=== PATIENT | female | born 1990 | race Caucasian/White ===

== ENCOUNTER 2017-04-16 12:17 | Emergency (ER) | payer BC ==
[~2017-04-16] VITALS: Ht 165.1 cm; Wt 55.0 kg
[2017-04-16 12:18] VITALS: BP 124/67; PULSE 97; RESP 20; TEMP 98.4; O2SAT 100
--- NOTE | 2017-04-16 12:27 | PD ---
Physical Exam Date Seen by Provider: Apr 16, 2017 Time Seen by Provider: 12:26 Narrative 26 yo female here for evaluation of left pelvic pain. She is about 5 weeks . No discharge. OB recomended she comes here to make sure she doesnt have ectopic . No other complains. Last period early February. Vitals are stable in triage. Awaiting bed placement. Data Data Last Documented VS Vital Signs Date Time Temp Pulse Resp B/P (MAP) Pulse Ox O2 Delivery O2 Flow Rate FiO2 04/16/17 12:18 98.4 97 20 124/67 (86) 100 Room Air [facility] Medical Record Reviewed: Yes Supervised Visit with ASCENCION: James Tucker Apr 16, 2017 12:27
[2017-04-16 13:08] LABS: BACTERIA, URINE OCC /hpf; BLOOD, URINE NEG (NEG); COMMENT (UR) CULT NOT INDICATED; CULTURE IF INDICATED CULT NOT INDICATED; GLUCOSE,URINE NEG (NEG); KETONE, URINE NEG (NEG); NITRITE,URINE NEG (NEG); PH, URINE 5.5 (5.0-8.5); SQUAMOUS EPITHELIAL CELL URINE 4 /hpf (0-5); URINE COLOR YELLOW (YELLW/STRAW)
[2017-04-16 13:42] LABS: BETA HCG QUANT 5180 MIU/ML (0-5)
[2017-04-16] MEDS ORDERED: PREN29TA PO (13:56)
--- NOTE | 2017-04-16 15:04 | RADRPT ---
EXAM DATE/TIME: 04/16/2017 13:47 [place] COMPARISON: No previous studies available for comparison. INDICATIONS : Pelvic pain. LAB(S): [facility] MEDICAL HISTORY : . SURGICAL HISTORY : None. ENCOUNTER: Initial ACUITY: 3 days PAIN SCORE: 3/10 LOCATION: Bilateral pelvis MEASUREMENTS: UTERUS: 8.0 x 5.1 x 6.4 cm ENDOMETRIAL STRIPE: >20 mm RIGHT OVARY: 4.2 x 2.4 x 3.0 cm LEFT OVARY: 2.2 x 1.0 x 1.5 cm FREE FLUID: Yes posterior cul-de-sac, right adnexa. CROWN RUMP LENGTH: Not visualized. = WKS DAYS FHR: Not visualized. BPM FINDINGS: UTERUS: The myometrium has homogeneous echotexture without mass. There are 2 small cystic areas the endometr ial canal. The larger area in the lower uterine segment measures 4 x 2 x 7 mm and may represent the g estational sac. Smaller, 2 x 2 x 3 mm cystic area in the body may represent a small amount of free en dometrial fluid RIGHT OVARY: There is a 2.4 x 1.6 x 1.9 cm somewhat complex but predominantly cystic lesion LEFT OVARY: Ovary contains no mass or significant cystic lesion. MISCELLANEOUS: Small amount of free fluid. CONCLUSION: 1. At least 2 cystic areas in the endometrial canal. The dominant cystic area measuring [address] is in the lower uterine segment, is oblong and probably represents an in progress. Small er, 2 mm cystic collection in the uterine body may represent free endometrial fluid. 2. Probable involuting corpus luteum the right ovary. Small amount of free fluid Demetris Francis MD on April 16, 2017 at 14:58 Board Certified Radiologist. This report was verified electronically.
--- NOTE | 2017-04-16 15:24 | PD ---
HPI Chief Complaint: CHAVEZ Related Problem Time Seen by Provider: 13:48 Travel History International Travel<30 days: No Contact w/Intl Traveler<30days: No Traveled to known affect area: No History of Present Illness HPI This is a 26-year-old female who presents to the emergency department with left lower quadrant abdominal discomfort, constant, mild, cramping that started today. She denies any vaginal bleeding. She is about 5-1/2 weeks . She had a miscarriage back in June and has 2 living children. She denies any fevers or chills. PFSH Past Medical History Medical History: Denies Significant Hx Diminished Hearing: No ?: LMP: 03/14/17 : 4 Para: 3 Miscarriage: 1 Social History Alcohol Use: No Tobacco Use: No Substance Use: No Allergies-Medications (Allergen,Severity, Reaction): Coded Allergies: No Known Allergies (Unverified , 04/16/17) Reported Meds & Prescriptions Reported Meds & Active Scripts Active Reported Plus Iron 29-1 mg ( Vit-Iron Carbonyl) 1 Tab Tab 1 Tab PO DAILY Review of Systems Except as stated in HPI: all other systems reviewed are Neg Physical Exam Narrative GENERAL:Well appearing, no acute distress SKIN: Focused skin assessment warm and dry. HEAD: Atraumatic. Normocephalic. EYES: Pupils equal and round. No injection or drainage. ENT: Moist mucous membranes NECK: Trachea midline. CARDIOVASCULAR: Regular rate and rhythm. No murmur appreciated. RESPIRATORY: Clear to auscultation. Breath sounds equal bilaterally. GASTROINTESTINAL: Abdomen soft, non-tender, nondistended. RAILROAD DESIGN CONSULTANT: No cervical motion tenderness or adnexal tenderness, no blood or discharge , closed cervix MUSCULOSKELETAL: No obvious deformities. NEUROLOGICAL: Awake and alert. No obvious cranial nerve deficits. Moving all extremities. PSYCHIATRIC: Appropriate mood and affect; insight and judgment normal. Data Data Last Documented VS Vital Signs Date Time Temp Pulse Resp B/P (MAP) Pulse Ox O2 Delivery O2 Flow Rate FiO2 04/16/17 12:18 98.4 97 20 124/67 (86) 100 Room Air Orders Orders Beta Hcg (Quant/Titer) (04/16/17 12:25) Us Pelvis (Ques Pr/Ect)W Trans (04/16/17 ) Urinalysis - C+S If Indicated (04/16/17 12:25) Ed Urine Pregnancytest Poc (04/16/17 12:25) Labs Laboratory Tests Test 04/16/17 12:35 04/16/17 12:37 Urine Color YELLOW Urine Turbidity HAZY Urine pH 5.5 Urine Specific [place] 1.029 Urine Protein TRACE mg/dL Urine Glucose (UA) NEG mg/dL Urine Ketones NEG mg/dL Urine Occult Blood NEG Urine Nitrite NEG Urine Bilirubin NEG Urine Urobilinogen LESS THAN 2.0 MG/DL Urine Leukocyte Esterase SMALL Urine RBC 2 /hpf Urine WBC 5 /hpf Urine Squamous Epithelial Cells 4 /hpf Urine Bacteria OCC /hpf Microscopic Urinalysis Comment CULT NOT INDICATED Human Chorionic Gonadotropin, Quant 5180 MIU/ML MDM Medical Decision Making Medical Screen Exam Complete: Yes Emergency Medical Condition: Yes Interpretation(s) afebrile, mild tachycardia, normotensive hcg 5180 urinalysis: no infection Last 24 hours Impressions Pelvis Ultrasound 04/16/17 0000 Signed Impressions: Service Date/Time: Friday, April 16, 2017 13:47 - CONCLUSION: 1. At least 2 cystic areas in the endometrial canal. The dominant cystic area measuring 7 mm in diameter is in the lower uterine segment, is oblong and probably represents an in progress. Smaller, 2 mm cystic collection in the uterine body may represent free endometrial fluid. 2. Probable involuting corpus luteum the right ovary. Small amount of free fluid Demetris Francis MD Differential Diagnosis Ectopic , threatened miscarriage, intrauterine Narrative Course This is a 26-year-old female who presents to the emergency department with lower pelvic pain. HCG is 5180 and her pelvic ultrasound demonstrates a 2 cysts in the endometrial canal concerning for a possible in progress. The patient is having no bleeding. Her pelvic exam is benign with no pain elicited and no evident bleeding. I spoke to Dr. Miller who is the patient's HAMMER FITTER. He requested the patient be seen in the office immediately following discharge from the emergency Department. I discussed this with the patient and she expressed understanding. Diagnosis Primary Impression: Early stage of Referrals: Thien Kebede MD Patient Instructions: General Instructions Additional Instructions: If you develop severe abdominal pain, vaginal bleeding, lightheadedness or dizziness return to the emergency room. Follow-up with immediately upon discharge from the emergency department. He is expecting you in clinic. Med/Other Pt SpecificInfo: No Change to Meds Disposition: 01 DISCHARGE HOME Condition: Stable Heidi Hdez MD Apr 16, 2017 15:24
== END 2017-04-16 16:22 | disposition home or self-care (01) ==
LOC: NEPD 12:17
DX: O26.891 Other specified pregnancy related conditions, first trimester (principal); Z3A.01 Less than 8 weeks gestation of pregnancy
CPT/HCPCS: 76700; 76817; 81001; 84702; 84703; 99285

== ENCOUNTER 2017-12-07 12:36 | Emergency (ER) | payer BC ==
[~2017-12-07] VITALS: Ht 165.1 cm; Wt 70.8 kg
[~2017-12-07 12:36] MED LIST: PREN29TA PO
--- NOTE | 2017-12-07 13:45 | PD ---
HPI Chief Complaint ctxs, vb Date Seen: Dec 07, 2017 Time Seen: 13:39 Travel History International Travel<30 Days: No Contact w/Intl Traveler<30Days: No Known Affected Area: No History of Present Illness HPI pt. is a 27 y/o @ 38 2/7 weeks present w/ c/o ctxs and vb. pt. states had some ctxs ~ 12 min apart since early am. pt. also states had small drops of blood that has since stopped. pt. also w/ some clear d/c. +FM. pt. cervix checked: 1/long/thick/high. Weeks Gestation: 38 Para: 2 : 4 History Past Medical History Medical History: Denies Significant Hx Obstetric History Obstetric History , x 2, sab x 1 Past Surgical History Surgical History: No Previous Surgery Family History Family History: Negative Social History Alcohol Use: No Tobacco Use: No Substance Abuse: No Allergies-Medications (Allergen,Severity, Reaction): Coded Allergies: No Known Allergies (Unverified , 04/16/17) Home Meds Reported Medications Vit-Iron Carbonyl ( Plus Iron 29-1 mg) 1 Tab Tab, 1 TAB PO DAILY for Nutritional Supplement, #30 TAB 0 Refills 04/16/17 Review of Systems Except as stated in HPI: all other systems reviewed are Neg Physical Exam Narrative GENERAL: Well-nourished, well-developed patient. SKIN: Warm and dry. HEAD: Normocephalic and atraumatic. EYES: No scleral icterus. No injection or drainage. ENT: No nasal drainage noted. Mucous membranes pink. Airway patent. NECK: Supple, trachea midline. No JVD. CARDIOVASCULAR: Regular rate and rhythm without murmurs, gallops, or rubs. RESPIRATORY: Breath sounds equal bilaterally. No accessory muscle use. ABDOMEN/GI: Abdomen soft, non-tender, bowel sounds present, no rebound, no guarding Gravid GENITOURINARY: External Genitalia: intact and normal in appearance Cervix: post Dilatation: 1 Effacement: long Station: high Membranes: intact, amniosure - Uterine Contractions: irreg FHT's: Category:1 Reactive: + Variability: mod EXTREMITIES: No cyanosis or edema. BACK: Nontender without obvious deformity. No CVA tenderness. NEUROLOGICAL: Awake and alert. Motor and sensory grossly within normal limits. Five out of 5 muscle strength in all muscle groups. Normal speech. Data Data Vital Signs Reviewed: Yes Orders Orders Tool [place] Clear For Discharge (12/07/17 ) [facility] Medical Record Reviewed: Yes Plan pt. not in labor and no srom. s/p small vb. pt. to be d/c to home. condition d /w pt. pt. given precautions for return. all ? answered. pt. to f/u as sched. Diagnosis Diagnosis: Primary Impression: 38 weeks gestation of Additional Impression: Uterine contractions during Disposition: 01 DISCHARGE HOME Stef Mcmahon Jr., MD Dec 07, 2017 13:45
== END 2017-12-07 14:05 | disposition home or self-care (01) ==
LOC: HOBED 12:36
DX: O26.893 Other specified pregnancy related conditions, third trimester (principal); N85.8 Other specified noninflammatory disorders of uterus; Z3A.38 38 weeks gestation of pregnancy
CPT/HCPCS: 59025; 84112

== ENCOUNTER 2017-12-10 21:29 | Emergency (ER) | payer BC ==
[2017-12-10] MEDS ORDERED: FERR325T18 PO (22:49)
--- NOTE | 2017-12-10 22:52 | PD ---
HPI Chief Complaint Spotting light vaginal bleeding after being examined in the office yesterday Date Seen: Dec 10, 2017 Time Seen: 22:46 Travel History International Travel<30 Days: No Contact w/Intl Traveler<30Days: No Known Affected Area: No History of Present Illness HPI Patient is 27-year-old white female 38 weeks presents complaining of spotting with light vaginal bleeding after being examined by Dr. Kebede yesterday in the office, she denies lilly red blood, leakage of fluid, significant pain. She is genesis irregularly and not feeling them Weeks Gestation: 38 Para: 2 : 4 History Obstetric History Obstetric History 2 vaginal deliveries 1 early loss Social History Alcohol Use: No Tobacco Use: No Substance Abuse: No Allergies-Medications (Allergen,Severity, Reaction): Coded Allergies: No Known Allergies (Unverified , 04/16/17) Home Meds Reported Medications Vit-Iron Carbonyl ( Plus Iron 29-1 mg) 1 Tab Tab, 1 TAB PO DAILY for Nutritional Supplement, #30 TAB 0 Refills 04/16/17 Review of Systems General / Constitutional: No: Fever, Weight Gain, Chills, Other Eyes: No: Diploplia, Blurred Vision, Visual changes, Pain, Photophobia HENT: No: Headaches, Vertigo, Lightheadedness Cardiovascular: No: Irregular Rhythm, Chest Pain or Discomfort, Palpitations, Tachycardia, Syncope, Varicosities, Edema, Cyanosis Respiratory: No: Cough, Short of Breath, Other Gastrointestinal: No: Nausea, Vomiting, Diarrhea Genitourinary: Vaginal Bleeding, No: Decreased Urinary Output, Oliguria Musculoskeletal: No: Limited ROM, Weakness, Cramping, Edema, Pain Skin: No Rash, No Itching, No Dryness, No Lumps, No Change in Pigmentation, No Change in Nails, No Alopecia, No Lesions Neurologic: No: Weakness, Dizziness, Syncope, Focal Abnormalities, Coordination Problem, Headache, Slurred Speech, Seizures Psychiatric: No: Depression, Suicidal Ideations, Homicidal Ideation Endocrine: No: Heat Intolerance, Cold Intolerance, Polydipsia, Polyuria, Other Physical Exam Narrative GENERAL: Well-nourished, well-developed patient. SKIN: Warm and dry. HEAD: Normocephalic and atraumatic. EYES: No scleral icterus. No injection or drainage. ENT: No nasal drainage noted. Mucous membranes pink. Airway patent. NECK: Supple, trachea midline. No JVD. CARDIOVASCULAR: Regular rate and rhythm without murmurs, gallops, or rubs. RESPIRATORY: Breath sounds equal bilaterally. No accessory muscle use. BREASTS: Bilateral exam showed no masses , no retractions, no nipple discharge. ABDOMEN/GI: Abdomen soft, non-tender, bowel sounds present, no rebound, no guarding Gravid to [-38] weeks size Fundal Height: [38-] GENITOURINARY: External Genitalia: intact and normal in appearance Speculum exam done no blood seen in the vagina only dark brown discharge light similar to old blood Cervix: [-Posterior] Dilatation: [-1] Effacement: [Thick-] Station: [-3] Presentation: [-vtx] Membranes: [intact ] Uterine Contractions: [irreg-] FHT's: Category: [1-] Baseline: [-144] Reactive: [R-] Variability: [mod-] Decels: [-none] EXTREMITIES: No cyanosis or edema. BACK: Nontender without obvious deformity. No CVA tenderness. NEUROLOGICAL: Awake and alert. Motor and sensory grossly within normal limits. Five out of 5 muscle strength in all muscle groups. Normal speech. MDM Interpretation(s) Patient is 27-year-old white female at 38 weeks with some light spotting after being checked in the office yesterday. Patient had no significant bleeding like a period no bright red bleeding. She is noticed a few dime size clots since being examined. She has had ultrasounds in that showed no sign of placenta previa. Bleeding is a result of being examined and possibly even stripping the membranes in the office. heart tones are reactive and contractions are irregular cervix is 1/thick/high Plan Plan to discharge patient home to increased risk of seeing any bleeding in follow-up with Dr. Kebede tomorrow she notes continued bleeding otherwise she is to see him the first part of next week. Diagnosis Diagnosis: Primary Impression: Spotting affecting in third trimester Additional Impression: 38 weeks gestation of Disposition: 01 DISCHARGE HOME Condition: Stable Asael Boucher II, MD Dec 10, 2017 22:52
== END 2017-12-10 22:55 | disposition home or self-care (01) ==
LOC: HOBED 21:29
DX: O26.853 Spotting complicating pregnancy, third trimester (principal); Z3A.38 38 weeks gestation of pregnancy
CPT/HCPCS: 59025

== ENCOUNTER 2017-12-15 09:36 | Inpatient (IN) | payer BC ==
[2017-12-15] VITALS (25 sets, daily range): BP systolic 102–127; BP diastolic 57–79; PULSE 70–105; RESP 18–20; TEMP 97.8–98.8
[~2017-12-15 09:36] MED LIST changes: +FERR325T18 PO
[2017-12-15] MEDS ORDERED: LACTATED RINGER'S 1000 ML IV SCH (10:30)
[2017-12-15] MEDS ORDERED: ONDANSETRON HCL 4 MG/2 ML VIAL IV PUSH PRN (10:30)
[2017-12-15] MEDS ORDERED: LIDOCAINE HCL 1% 50 ML VIAL I-DERMAL PRN (10:30)
[2017-12-15] MEDS ORDERED: CITRIC ACID-SODIUM CITRATE LIQ 30 ML UDC PO SCH (10:30)
[2017-12-15] MEDS ORDERED: OXYTOCIN 30 UNITS 500ML PREMIX IV ONE (10:30)
[2017-12-15] MEDS ORDERED: LACTATED RINGER'S 1000 ML BOLUS IV PRN (10:30)
[2017-12-15] MEDS ORDERED: LIDOCAINE HCL 1% 50 ML VIAL INFIL PRN (10:30)
[2017-12-15] MEDS ORDERED: NS 500 ML BOLUS IV PRN (10:30)
[2017-12-15] MEDS ORDERED: OXYTOCIN 30 UNITS/NS 500ML PREMIX IV PRN (10:30)
[2017-12-15] MEDS ORDERED: MINERAL OIL 10 ML VIAL TOPICAL PRN (10:30)
[2017-12-15] MEDS ORDERED: NS 1000 ML IV PRN (10:30)
[2017-12-15 10:48] LABS: AUTOMATED NEUTROPHIL # 7.5 TH/MM3 (1.8-7.7); BASOPHIL % 0.2 % (0.0-2.0); EOSINOPHIL # 0.2 TH/MM3 (0-0.4); EOSINOPHIL % 1.8 % (0.0-4.0); HEMATOCRIT 35.4 % (35.0-46.0); HEMOGLOBIN 11.4 GM/DL (11.6-15.3); LYMPH % 18.5 % (9.0-44.0); LYMPHOCYTE # 1.9 TH/MM3 (1.0-4.8); MEAN CORPUSCULAR HEMOGLOBIN 23.2 PG (27.0-34.0); MEAN CORPUSCULAR HGB CONC 32.2 % (32.0-36.0); MEAN PLATELET VOLUME 9.2 FL (7.0-11.0); MONO % 6.3 % (0.0-8.0); MONOCYTE # 0.6 TH/MM3 (0-0.9); NEUT % 73.2 % (16.0-70.0); PLATELET COUNT 156 TH/MM3 (150-450); RED BLOOD COUNT 4.92 MIL/MM3 (4.00-5.30); RED CELL DISTRIBUTION WIDTH 33.5 % (11.6-17.2); WHITE BLOOD COUNT 10.3 TH/MM3 (4.0-11.0)
[2017-12-15 10:51] LABS: BILIRUBIN, URINE NEG (NEG); BLOOD, URINE MOD (NEG); GLUCOSE,URINE NEG (NEG); KETONE, URINE NEG (NEG); NITRITE,URINE NEG (NEG); SQUAMOUS EPITHELIAL CELL URINE 2 /hpf (0-5); TRANSITIONAL EPI CELLS, URINE <1 /hpf; URINE COLOR YELLOW (YELLW/STRAW); URINE LEUKOCYTE ESTERASE NEG (NEG)
[2017-12-15] MEDS ORDERED: ePHEDrine/NS 25 MG/5 ML SYRINGE ONE (11:09)
[2017-12-15] MEDS ORDERED: fentaNYL 2MCG-BUPIV 0.125% INJ 100 ML ONE (11:09)
[2017-12-15 11:46] LABS: ACANTHOCYTES OCC (NORMAL); OVALOCYTES 1+ (NORMAL)
[2017-12-15] MEDS ORDERED: DO NOT ADMINISTER ANTICOAGULANTS PRN (14:15)
[2017-12-15] MEDS ORDERED: NO SYSTEM NARCOTICS PRN (14:15)
[2017-12-15] MEDS ORDERED: fentaNYL 2MCG-BUPIV 0.125% 100 ML EPIDURAL SCH (14:15)
[2017-12-15] MEDS ORDERED: ePHEDrine/NS 25 MG/5 ML SYRINGE IV PUSH PRN (14:15)
[2017-12-15] MEDS ORDERED: DIPHTH/TETANUS/ACEL PERTUSSIS (BOOSTER) 0.5 ML VIAL/PFS IM ONE (16:00)
[2017-12-15] MEDS ORDERED: MEASLES, MUMPS, RUBELLA VACCINE 0.5 ML VIAL SQ ONE (16:00)
--- NOTE | 2017-12-15 16:11 | PD.OB.DELI ---
Weeks gestation: 39 Gest age assessed date: Dec 15, 2017 Pt started active labor?: Yes Active labor start date: Dec 15, 2017 Active labor start time: 11:00 Medical induction of labor?: No Artificial rupture of membrane: Yes Artificial ROM date: Dec 15, 2017 Anesthesia: Epidural Episiotomy: None Presentation: Occiput anterior Nuchal Cord: None Delayed cord clamping (45 sec): Yes : Female Delivery date: Dec 15, 2017 Delivery time: 15:47 One Minute : 9 Five Minute : 9 Weight: 7/1 Placenta: Spontaneous delivery, Manual removal, Not Intact, 3 vessel cord Laceration: 1 deg Repair: Vicryl running Estimated blood loss: 300 Additional Information Quick deliveery of Destiny Li hand Two small superficial periurethral lacerations. Very superficial and placed some 5-0 vicryl stiches. Placenta came out not intact and uterus explored and cleaned out. Minimal Thien Morales MD Dec 15, 2017 16:11
[2017-12-15] MEDS ORDERED: OXYTOCIN 30 UNITS-500ML PREMIX 500 ML IV ONE (16:15)
[2017-12-15] MEDS ORDERED: BENZOCAINE 20% TOPICAL SPRAY 60 ML CAN TOPICAL PRN (16:15)
[2017-12-15] MEDS ORDERED: ACETAMINOPHEN 325 MG TAB PO PRN (16:15)
[2017-12-15] MEDS ORDERED: ONDANSETRON ODT 4 MG TAB PO PRN (16:15)
[2017-12-15] MEDS ORDERED: ALUMINUM/MAGNESIUM/SIMETH 30 ML CUP PO PRN (16:15)
[2017-12-15] MEDS ORDERED: oxyCODONE/ACETAMINOPHEN 5 MG/325 MG TAB PO PRN ×2 (16:15)
[2017-12-15] MEDS ORDERED: ZOLPIDEM TARTRATE 5 MG TAB PO PRN (16:15)
[2017-12-15] MEDS ORDERED: SODIUM CHLORIDE 0.9% FLUSH 10 ML FLUSH IV FLUSH PRN (16:15)
[2017-12-15] MEDS ORDERED: DOCUSATE SODIUM 50 MG/SENNA 8.6 MG TAB PO PRN (16:15)
[2017-12-15] MEDS ORDERED: WITCH HAZEL 50%/GLYCERIN 12.5% 40 PAD JAR TOPICAL PRN (16:15)
[2017-12-15] MEDS ORDERED: OXYTOCIN 30 UNITS-500ML PREMIX 500 ML IV SCH (16:15)
[2017-12-15] MEDS ORDERED: SODIUM CHLORIDE 0.9% FLUSH 10 ML FLUSH IV FLUSH SCH (21:00)
[2017-12-16] MEDS: IBUPROFEN 800 MG TAB PO PRN ×2 (03:39→12:14)
[2017-12-16] MEDS ORDERED: MULTIVIT/MIN/PREN/FOL AC/IRON PRENATAL TAB PO SCH (09:00)
--- NOTE | 2017-12-16 10:37 | HHI.OB ---
Subjective Post Operative Day: 1 Objective Vitals/I&O Vital Signs Date Time Temp Pulse Resp B/P (MAP) Pulse Ox O2 Delivery O2 Flow Rate FiO2 12/15/17 19:58 98.1 70 18 126/75 (92) 12/15/17 18:10 98.8 80 18 111/67 (82) 12/15/17 14:15 78 114/58 (76) 12/15/17 14:00 80 109/57 (74) 12/15/17 13:45 76 102/60 (74) 12/15/17 13:40 97.8 12/15/17 13:40 18 12/15/17 13:30 70 110/70 (83) 12/15/17 13:15 75 115/73 (87) 12/15/17 13:01 90 109/68 (82) 12/15/17 12:45 70 114/63 (80) 12/15/17 12:31 73 119/67 (84) 12/15/17 12:16 74 117/63 (81) 12/15/17 12:14 97.9 12/15/17 12:12 20 12/15/17 12:10 79 114/79 (91) 12/15/17 12:10 105 12/15/17 12:06 81 111/65 (80) 12/15/17 12:05 83 12/15/17 12:01 81 115/65 (82) 12/15/17 12:00 87 12/15/17 11:55 81 12/15/17 11:55 83 115/67 (83) 12/15/17 11:50 79 12/15/17 11:50 80 115/72 (86) 12/15/17 11:45 88 12/15/17 11:45 90 127/74 (91) 12/15/17 11:40 103 12/15/17 10:39 98.3 18 Result Diagram: 12/15/17 1000 Objective Remarks GENERAL: Well-nourished, well-developed patient. CARDIOVASCULAR: Regular rate and rhythm without murmurs, gallops, or rubs. RESPIRATORY: Breath sounds equal bilaterally. No accessory muscle use. ABDOMEN/GI: Abdomen soft, non-tender, bowel sounds present. Incision: Clean, dry and intact. Fundus: Firm, non-tender at umbilicus. GENITOURINARY: Light to moderate bleeding. EXTREMITIES: No cyanosis or edema, non-tender, without signs of DVT. Medications and IVs Current Medications Medications (Trade) Dose Ordered Sig/Bairon Route Start Time Stop Time Status Last Admin (NS Flush) 2 ml BID IV FLUSH 12/15/17 21:00 (NS Flush) 2 ml UNSCH PRN IV FLUSH 12/15/17 16:15 (Tylenol) 650 mg Q4H PRN PO 12/15/17 16:15 (Motrin) 800 mg Q8H PRN PO 12/15/17 16:15 12/16/17 03:39 (Percocet 5-325 Mg) 1 tab Q4H PRN PO 12/15/17 16:15 (Percocet 5-325 Mg) 2 tab Q4H PRN PO 12/15/17 16:15 (Americaine 20% Top Spr) 1 spray Q4H PRN TOPICAL 12/15/17 16:15 12/15/17 22:31 (Tucks Pads) 1 applic QID PRN TOPICAL 12/15/17 16:15 12/15/17 22:31 (Suze-Colace) 2 tab Q12H PRN PO 12/15/17 16:15 (Ambien) 5 mg HS PRN PO 12/15/17 16:15 (Mag-Al Plus Susp Liq) 15 ml Q8H PRN PO 12/15/17 16:15 (Zofran Odt) 4 mg Q6H PRN PO 12/15/17 16:15 (Stuartnatal Plus 3 ) 1 tab DAILY PO 12/16/17 09:00 12/16/17 09:03 Assessment/Plan Problem List: (1) Normal vaginal delivery ICD Codes: O80 - Encounter for full-term uncomplicated delivery Assessment and Plan pt doing well and comfortable not taking anything at this time for pain breast feeding is going well, pt bonding with routine Discharge Planning consider dc home tomorrow Kalee De León Dec 16, 2017 10:37
== END 2017-12-16 19:16 | disposition home or self-care (01) | DRG 775 ==
LOC: H2EA 09:36 → H1EA 18:07
PROVIDERS: ADMIT Obstetrics & Gynecology; ATTEND Obstetrics & Gynecology
PROC: 10E0XZZ Delivery of Products of Conception, External Approach (ICD-10-PCS; principal; 2017-12-15)
PROC: 0HQ9XZZ Repair Perineum Skin, External Approach (ICD-10-PCS; 2017-12-15)
PROC: 00HU33Z Insertion of Infusion Device into Spinal Canal, Percutaneous Approach (ICD-10-PCS; 2017-12-15)
PROC: 3E0R3BZ Introduction of Anesthetic Agent into Spinal Canal, Percutaneous Approach (ICD-10-PCS; 2017-12-15)
DX: O70.0 First degree perineal laceration during delivery (principal); Z23 Encounter for immunization; Z37.0 Single live birth; Z3A.39 39 weeks gestation of pregnancy
CPT/HCPCS: 80307; 81001; 85025; 86900; 86901; 90715; G0481